=== PATIENT | female | born 1955 | race Caucasian/White ===

== ENCOUNTER → 2017-09-05 | Outpatient (CLI) | payer OTHER ==
--- NOTE | 2017-09-07 09:28 | MAM ---
EXAM DESCRIPTION: 3D Screening BILATERAL : Digital Mammography. CLINICAL HISTORY: 62 years Female SCREENING . Bilateral moles and skin tags. Persistent subcutaneous fatty mass over the sternum. Remote family history of breast cancer. Surgical menopause, no HRT. COMPARISON: Baseline study at this facility. No prior reports available. TECHNIQUE: Bilateral CC and MLO projection full-field images, 3-D tomosynthesis digital mammographic technique. Also bilateral synthesized CC/ MLO full-field images. CAD not utilized. FINDINGS: The breast parenchymal density pattern is: Scattered areas of fibroglandular density. No skin thickening or nipple retraction . bilateral solitary microcalcifications. Focal asymmetry retroareolar left breast 3 cm from the nipple at the 1200 clock position. Similar density to the surrounding fibroglandular tissues. Not associated with microcalcifications. Focal asymmetry in the retroareolar right breast at the 1200 clock position, 2 cm from the nipple. Similar density to the surrounding soft tissues and not associated with microcalcifications. IMPRESSION: BI-RADS CATEGORY: 0 - INCOMPLETE- Need additional imaging evaluation. FOLLOW-UP: Recall for additional imaging: Bilateral 3-D tomosynthesis full field LM projections, followed by targeted retroareolar bilateral breast ultrasound. Written communication explaining the results and follow-up will be mailed to the patient and referring care provider. Electronically signed by: Fredo Benoit MD 09/07/2017 9:26 AM [employer]
== END | disposition home or self-care (01) ==
LOC: MAMMO 10:56
PROVIDERS: ATTEND Family Medicine
DX: Z12.31 Encounter for screening mammogram for malignant neoplasm of breast (principal)
CPT/HCPCS: 77063; G0202

== ENCOUNTER → 2020-07-29 | Outpatient (CLI) | payer SELFPAY | LOC: LAB.O 14:40 | PROVIDERS: ATTEND Family Medicine | DX: E03.8 Other specified hypothyroidism (principal) ==